=== PATIENT | female | born 1995 | race Caucasian/White ===

== ENCOUNTER 2016-12-26 10:48 | Emergency (ER) | payer BC ==
[2016-12-26 11:05] VITALS: BP 119/81
--- NOTE | 2016-12-26 11:25 | UC ---
Knee Pain HPI - HPI Summary HPI Summary: 21 y/o female presents to the urgent care c/o B/L knee pain. RT Knee pain started 2 weeks after she was running. Pain 5/10 constant w/o any radiation and mild swelling. She is able to ambulate, but sometimes it hurts more w/ flexion or going up the stairs. She has been taking Aleve to alleviate symptoms. Now LF knee started 5 days ago. Pt LMP: 11/30/2016 and she states she is not and declines test. Pt denies numbness or tingling, fever, SOB, chest pain, N/V/D, abdominal pain, - History of Current Complaint Chief Complaint: UCLowerExtremity Stated Complaint: BILATERAL KNEE COMPLAINT Time Seen by Provider: 12/26/16 11:15 Hx Obtained From: Patient Hx Last Menstrual Period: 11/30/16 ?: No Onset/Duration: Gradual Onset, Lasting Days, Still Present Severity Initially: Moderate Severity Currently: Moderate Pain Intensity: 5 Pain Scale Used: 0-10 Numeric Character: Sharp Aggravating Factor(s): Movement, Stairs Alleviating Factor(s): Rest Associated Signs And Symptoms: Positive: Swelling. Negative: Fever, Numbness, Tingling Able to Bear Weight: Yes - Risk Factors Septic Arthritis Risk Factor: Negative Gout Risk Factor: Negative - Allergies/Home Medications Allergies/Adverse Reactions: Allergies Allergy/AdvReac Type Severity Reaction Status Date / Time sulfa Allergy Unknown Uncoded 12/26/16 11:05 Reaction Details Home Medications: Home Medications Amphetamine MIXED SALTS TAB* [Adderall TAB*] 5 mg PO QPM 12/26/16 [History Confirmed 12/26/16] Norethindrone & Mestranol [Necon 150-28 1-50 mg-Mcg] 1 tab PO QAM 12/26/16 [ History Confirmed 12/26/16] Sertraline* [Zoloft*] 100 mg PO DAILY 12/26/16 [History Confirmed 12/26/16] PMH/Surg Hx/FS Hx/Imm Hx Previously Healthy: Yes - Surgical History Surgical History: None - Family History Known Family History: Positive: None - Social History Occupation: Employed Full-time Lives: With Family Alcohol Use: Rare Substance Use Type: Excessive Caffeine Smoking Status (MU): Never Smoked Tobacco Review of Systems Constitutional: Negative Skin: Negative Eyes: Negative ENT: Negative Respiratory: Negative Cardiovascular: Negative Gastrointestinal: Negative Genitourinary: Negative Motor: Negative Neurovascular: Negative Musculoskeletal: Other: - B/L knee pain w/ swelling Neurological: Negative Psychological: Negative All Other Systems Reviewed And Are Negative: Yes Physical Exam Triage Information Reviewed: Yes Appearance: Well-Appearing, No Pain Distress, Well-Nourished, Obese Vital Signs: Initial Vital Signs Temp 98.4 F 12/26/16 10:56 Pulse 72 12/26/16 10:56 Resp 18 12/26/16 10:56 BP 119/81 12/26/16 10:56 Vital Signs Reviewed: Yes Eye Exam: Normal Eyes: Positive: Conjunctiva Clear - PERRLA, EOMI, fundi grossly normal ENT Exam: Normal ENT: Positive: Normal ENT inspection, Hearing grossly normal, Pharynx normal, TMs normal Dental Exam: Normal Neck exam: Normal Neck: Positive: Supple, Nontender, No Lymphadenopathy Respiratory Exam: Normal Respiratory: Positive: Chest non-tender, Lungs clear, Normal breath sounds Cardiovascular Exam: Normal Cardiovascular: Positive: RRR, No Murmur, Pulses Normal, Brisk Capillary Refill Abdominal Exam: Normal Abdomen Description: Positive: Nontender, No Organomegaly, Soft. Negative: CVA Tenderness (R), CVA Tenderness (L) Bowel Sounds: Positive: Present Musculoskeletal: Positive: Strength Intact, ROM Limited @ - B/L knee ROM limited due to pain. RT>LF. Mild sweeling below the RT patella w/ point tenderness above the RT patella. Drawer test, Varus/valgus, and McMurrays test negative. moderate pain on RT knee flexion. Positive pulses and capillary refill intact over the lower extremities. Positive reflexes and sensation intact., Other: Neurological Exam: Normal Psychological Exam: Normal Skin Exam: Normal Knee Pain Course/Dx - Course Course Of Treatment: 21 y/o female presents to the urgent care c/o B/L knee pain. RT Knee pain started 2 weeks after she was running. Pain 5/10 constant w/ o any radiation and mild swelling. She is able to ambulate, but sometimes it hurts more w/ flexion or going up the stairs. She has been taking Aleve to alleviate symptoms. Now LF knee started 5 days ago. Pt LMP: 11/30/2016 and she states she is not and declines test. Pt denies numbness or tingling, fever, SOB, chest pain, N/V/D, abdominal pain, HX obtained. RT knee X -ray ordered, Impression: negative. Probably a knee sprain. LF knee pain probably is developing since Pt is placing more weight bearing on that side to alleviate RT knee pain. PT RT knee immobilized w/ a knee immobilizer. Rx Naproxen to alleviated symptoms and advised RICE and f/u with her PCP if symptoms persists for further evaluation and treatment. Pt understood and agreed and left the clinic ambulating w/ the help of the knee immobilizer. PT RT knee - Differential Dx/Diagnosis Differential Diagnosis/HQI/PQRI: Contusion, Fracture (Closed), Patellofemoral Syndrome, Sprain, Strain, Tendonitis Provider Diagnoses: 1-Billateral knee pain Discharge - Discharge Plan Condition: Stable Disposition: HOME Prescriptions: Naproxen TAB* [Naprosyn 250 mg TAB*] 500 mg PO Q8H PRN #30 tab PRN Reason: Pain Patient Education Materials: Knee Sprain (ED), Patellofemoral Pain Syndrome (ED ) Referrals: Adelia Stevens MD [Primary Care Provider] - 1 Week Additional Instructions: Take Naproxen as instructed after meals to alleviate pain and swelling. Keep your knee immobilized and apply ice and rest. If symptoms do not improve or worsen please f/u with your PCP in 1 week for further evaluation and treatment
--- NOTE | 2016-12-26 11:59 | RAD ---
INDICATION: Right knee pain after running COMPARISON: None TECHNIQUE: AP, lateral, tunnel, and sunrise views were obtained. FINDINGS: The bony structures, joint spaces, and soft tissues are normal for age. IMPRESSION: NEGATIVE EXAMINATION.
== END 2016-12-26 12:30 | disposition home or self-care (01) ==
LOC: UCCORT 10:48
DX: M25.562 Pain in left knee (principal); M25.561 Pain in right knee; E66.9 Obesity, unspecified
CPT/HCPCS: 99203; G0463

== ENCOUNTER 2017-10-24 09:33 | Emergency (ER) | payer BC ==
[2017-10-24 09:48] VITALS: BP 121/68
--- NOTE | 2017-10-24 09:57 | UC ---
Ear Complaint HPI - HPI Summary HPI Summary: Patient presents with recurrent right ear pain. Patient states approximately 2 weeks ago she was prescribed amoxicillin, twice a day, for 7 days. Patient states this was for an ear infection. Patient states symptoms seemed to improve for approximately 3 days. Patient states over the last 2-3 days pain in her ear is much worse. Patient states it feels full like there is fluid. Patient reports pressure and popping when she chews or opens her mouth. No fevers or chills. Patient reports fatigue. No nausea or vomiting. No rash. Patient without history of similar. She denies throat pain. Swelling couple. Shortness of breath. No cough. No rash. Patient's medications reviewed this visit - History of Current Complaint Chief Complaint: UCEar Stated Complaint: RIGHT EAR PAIN Time Seen by Provider: 10/24/17 09:56 Hx Last Menstrual Period: 10/10/17 ?: No Onset/Duration: Gradual Onset, Lasting Days Severity Initially: Moderate Severity Currently: Moderate Pain Intensity: 3 Pain Scale Used: 0-10 Numeric - Allergies/Home Medications Allergies/Adverse Reactions: Allergies Allergy/AdvReac Type Severity Reaction Status Date / Time sulfa Allergy Unknown Uncoded 10/24/17 09:47 Reaction Details Home Medications: Home Medications Omeprazole CAP* [Prilosec CAP* 20 MG] 20 mg PO DAILY 10/24/17 [History Confirmed 10/24/17] PMH/Surg Hx/FS Hx/Imm Hx Previously Healthy: Yes - Surgical History Surgical History: None - Family History Known Family History: Positive: None - Social History Occupation: Employed Full-time Lives: With Family Alcohol Use: Rare Substance Use Type: Excessive Caffeine Smoking Status (MU): Never Smoked Tobacco Review of Systems Constitutional: Fatigue ENT: Ear Ache, Sinus Congestion Respiratory: Negative All Other Systems Reviewed And Are Negative: Yes Physical Exam - Summary Physical Exam Summary: Vital Signs Reviewed: Yes A+Ox3, no distress Eyes: Conjunctiva Clear ABRIL, EOM intact and full ENT: Hearing grossly normal + purulent fluid, buldging right TM no matoid pain. left TM wnl turbinates mild boggy + PND no erythema, no exudate neck: supple no lymphadenopathy Respiratory: Positive: No respiratory distress, No accessory muscle use CTA throughout no w/r Cardiovascular: skin color reflect adequate perfusion RRR nl s1 s2 CBT < 2sec Musculoskeletal Exam: HA x 4 without difficulty Neurological: Positive: Alert, ambulatory without difficulty Psychological: Positive: Normal Response To Family Skin: Positive: no rash, no ecchymosis Triage Information Reviewed: Yes Vital Signs: Initial Vital Signs Temp 97.8 F 10/24/17 09:44 Pulse 82 10/24/17 09:44 Resp 16 10/24/17 09:44 BP 121/68 10/24/17 09:44 Pulse Ox 100 10/24/17 09:44 Ear Complaint Course/Dx - Course Course Of Treatment: Patient with progressive right ear pain. Patient was recently treated with amoxicillin for otitis media. Patient states symptoms improved for approximately 3 days after antibiotics are completed. Patient states the last to 3 days increasing pain and pressure "worse than before "on exam patient with purulent fluid behind her TM with bulging. Patient nontoxic appearing. Vital signs stable. No mastoid pain. Place patient on moxifloxacin. Discussed with patient concern for tendons. Also discussed with patient and proceeded. Patient recommended probiotics or yogurt. Flonase also prescribed as well as recommended decongestant. Pt comfortable and in agreement with plan - Differential Dx/Diagnosis Provider Diagnoses: right otits media Discharge - Sign-Out/Discharge Documenting (check all that apply): Discharge/Admit/Transfer - Discharge Plan Condition: Stable Disposition: HOME Prescriptions: Fluticasone NASAL SPRAY 50MCG* [Flonase NASAL SPRAY 50MCG*] 2 spray BOTH NARES DAILY #1 btl Moxifloxacin HCl [Avelox] 400 mg PO DAILY #10 tablet Patient Education Materials: Ear Infection (ED) Referrals: No Primary Care Phys,NOPCP [Primary Care Provider] - Additional Instructions: - Stay well hydrated. Drink plenty of non-alcoholic, non-caffinated beverages. - Alternate ibuprofen (Advil, Motrin) 600mg and Tylenol every 3 hours for pain or fever. Take with food. Do NOT take for more than 4-5 days. - These infections are spread by secretions - do NOT share eating or drinking utensils - clean items you share with other people such as cell phones, computer mouse, TV remote, computer tablets,etc. Once you have been antibiotics for 2 days, change your toothbrush and your pillowcase. - take antibiotics as prescribed until gone - use nasal spray daily - it is recommended you use a decongestant and antihistamine medications such as Claritin-D, Narda-D, Zyrtec-D - get plenty of restful sleep - humidify the air in the room where you sleep - boil water, run a hot steam shower, vaporizer, cups of water by heat register - It is recommended you take pro-biotics (found in the vitamin aisle) or eat yogurt daily while on the antibiotic to try to prevent diarrhea due to recent amoxicillin in combination with this antibiotic - contact your doctor or return with questions or concerns - Billing Disposition and Condition Condition: STABLE Disposition: Home
== END 2017-10-24 10:25 | disposition home or self-care (01) ==
LOC: UCCORT 09:33
DX: H66.91 Otitis media, unspecified, right ear (principal); Z88.2 Allergy status to sulfonamides
CPT/HCPCS: 99212; G0463

== ENCOUNTER 2018-02-23 09:18 | Emergency (ER) | payer BC ==
[2018-02-23 09:38] VITALS: BP 127/76
--- NOTE | 2018-02-23 10:25 | UC ---
Throat Pain/Nasal Rashi HPI - HPI Summary HPI Summary: sinus pain and pressure x 2 weeks nasal congestion , cough , pnd, no fever, no chills + rash on her left flank area and left upper thigh , not itchy , not painful - History of Current Complaint Chief Complaint: UCGeneralIllness Stated Complaint: CONGESTION COUGH SKIN COMPLAINT Time Seen by Provider: 02/23/18 10:11 Hx Obtained From: Patient Hx Last Menstrual Period: 10/10/17 ?: No Onset/Duration: Gradual Onset, Lasting Weeks - 2, Still Present Severity: Moderate Pain Intensity: 0 Cough: Nonproductive Associated Signs & Symptoms: Positive: Sinus Discomfort, Nasal Discharge, Rash. Negative: Dysphagia, FB Sensation, Drooling, Wheezing, Hoarseness, Fever, Vomiting - Allergies/Home Medications Allergies/Adverse Reactions: Allergies Allergy/AdvReac Type Severity Reaction Status Date / Time Sulfa (Sulfonamide Allergy Unknown Verified 02/23/18 09:37 Antibiotics) Reaction Details Home Medications: Home Medications Iron 1 each PO DAILY 02/23/18 [History Confirmed 02/23/18] PMH/Surg Hx/FS Hx/Imm Hx - Additional Past Medical History Additional PMH: DEPRESSION, anxiety, irregular menses ANEMIA - Surgical History Surgical History: None - Family History Known Family History: Positive: None Negative: Diabetes - Social History Alcohol Use: Occasionally Substance Use Type: None Smoking Status (MU): Never Smoked Tobacco Review of Systems Constitutional: Negative Skin: Rash Eyes: Negative ENT: Sore Throat, Nasal Discharge, Sinus Congestion, Sinus Pain/Tenderness Respiratory: Cough Cardiovascular: Negative Is Patient Immunocompromised?: No All Other Systems Reviewed And Are Negative: Yes Physical Exam Triage Information Reviewed: Yes Appearance: Well-Appearing, No Pain Distress, Well-Nourished Vital Signs: Initial Vital Signs Temp 97.5 F 02/23/18 09:32 Pulse 90 02/23/18 09:32 Resp 14 02/23/18 09:32 BP 127/76 02/23/18 09:32 Pulse Ox 99 02/23/18 09:32 ENT: Positive: Normal ENT inspection, Hearing grossly normal, Pharyngeal erythema, Nasal drainage, TMs normal, Sinus tenderness Neck exam: Normal Neck: Positive: Supple, Nontender, No Lymphadenopathy Respiratory Exam: Normal Respiratory: Positive: Chest non-tender, Lungs clear, Normal breath sounds Cardiovascular: Positive: RRR, No Murmur, Pulses Normal Skin: Positive: rashes - papulary rash left flank / left upper thigh Throat Pain/Nasal Course/Dx - Differential Dx/Diagnosis Provider Diagnoses: sinusitis. folliculis Discharge - Sign-Out/Discharge Documenting (check all that apply): Patient Departure All imaging exams completed and their final reports reviewed: No Studies - Discharge Plan Condition: Stable Disposition: HOME Prescriptions: Amoxicillin/Clavulanate TAB* [Augmentin TAB 875*] 875 mg PO BID #20 tab Mupirocin 2% CREAM* [Bactroban 2% CREAM*] 1 applic TOPICAL TID #1 tube Patient Education Materials: Sinusitis (ED), Folliculitis (ED) Referrals: No Primary Care Phys,NOPCP [Primary Care Provider] - 7 Days - Billing Disposition and Condition Condition: STABLE Disposition: Home
== END 2018-02-23 10:27 | disposition home or self-care (01) ==
LOC: UCCORT 09:18
DX: J32.9 Chronic sinusitis, unspecified (principal); L73.9 Follicular disorder, unspecified; Z88.1 Allergy status to other antibiotic agents
CPT/HCPCS: 99212; G0463

== ENCOUNTER 2018-09-10 09:35 | Emergency (ER) | payer BC ==
[2018-09-10 10:17] VITALS: BP 114/76
--- NOTE | 2018-09-10 10:34 | UC ---
Abdominal Pain Female HPI - HPI Summary HPI Summary: abdominal pain x 1 day sudden onset of sharp mid abdominal pain lasted for 30 min. improved with BM + diarrhea x 3 , noted some blood in her stool no fever, no chills, + nausea, no vomiting - History of Current Complaint Chief Complaint: UCAbdominalPain Stated Complaint: ABDOMINAL PAIN,DIARRHEA Time Seen by Provider: 09/10/18 10:22 Hx Obtained From: Patient Hx Last Menstrual Period: "2 WEEKS AGO MAYBE" ?: No Onset/Duration: Sudden Onset, Lasting Days - 1, Still Present Timing: Constant Severity Initially: Moderate Severity Currently: Moderate Pain Intensity: 5 Location: Diffuse Radiates: No Character: Cramping Aggravating Factor(s): Food Alleviating Factor(s): Nothing Associated Signs and Symptoms: Positive: Nausea, Diarrhea. Negative: Diaphoresis, Fever, Cough, Chest Pain, Dizzy, Back Pain, Constipation, Blood in Stool, Urinary Symptoms, Decreased Appetite, Vaginal Bleeding, Vaginal Discharge , Vomiting Allergies/Adverse Reactions: Allergies Allergy/AdvReac Type Severity Reaction Status Date / Time Sulfa (Sulfonamide Allergy Unknown Verified 09/10/18 10:12 Antibiotics) Reaction Details Home Medications: Home Medications Citalopram TAB* [Celexa TAB*] 1 tab QPM 09/10/18 [History Confirmed 09/10/18] Norethindrone-Ethinyl Estrad [Necon 0.5-35-28 Tablet] 1 tab QPM 09/10/18 [ History Confirmed 09/10/18] PMH/Surg Hx/FS Hx/Imm Hx - Additional Past Medical History Additional PMH: DEPRESSION, anxiety, irregular menses ANEMIA Psychological History: Anxiety, Depression - Surgical History Surgical History: None - Family History Known Family History: Positive: None Negative: Diabetes - Social History Alcohol Use: Occasionally Substance Use Type: None Smoking Status (MU): Never Smoked Tobacco Review of Systems All Other Systems Reviewed And Are Negative: Yes Constitutional: Positive: Negative Skin: Positive: Negative Eyes: Positive: Negative ENT: Positive: Negative Respiratory: Positive: Negative Cardiovascular: Positive: Negative Gastrointestinal: Positive: Abdominal Pain, Diarrhea, Nausea Genitourinary: Positive: Negative Is Patient Immunocompromised?: No Physical Exam Triage Information Reviewed: Yes Appearance: Well-Appearing, No Pain Distress, Well-Nourished Vital Signs: Initial Vital Signs Temp 98.2 F 09/10/18 10:13 Pulse 85 09/10/18 10:13 Resp 16 09/10/18 10:13 BP 114/76 09/10/18 10:13 Pulse Ox 99 09/10/18 10:13 Vital Signs Reviewed: Yes Eye Exam: Normal Eyes: Positive: Conjunctiva Clear ENT: Positive: Normal ENT inspection, Hearing grossly normal, Pharynx normal, Pharyngeal erythema Neck: Positive: Supple, Nontender, No Lymphadenopathy Respiratory: Positive: Chest non-tender, Lungs clear, Normal breath sounds, No respiratory distress Cardiovascular: Positive: RRR, No Murmur, Pulses Normal Abdomen Description: Positive: Nontender, Soft. Negative: CVA Tenderness (R), CVA Tenderness (L), Distended, Guarding Bowel Sounds: Positive: Hypoactive Skin Exam: Normal Abd Pain Female Course/Dx - Differential Dx/Diagnosis Provider Diagnosis: Gastroenteritis Discharge - Sign-Out/Discharge Documenting (check all that apply): Patient Departure All imaging exams completed and their final reports reviewed: No Studies - Discharge Plan Condition: Stable Disposition: HOME Patient Education Materials: Gastroenteritis (ED) Forms: *Work Release Referrals: Bernadine Riley PA [Primary Care Provider] - If Needed - Billing Disposition and Condition Condition: STABLE Disposition: Home
== END 2018-09-10 10:35 | disposition home or self-care (01) ==
LOC: UCCORT 09:35
DX: K52.9 Noninfective gastroenteritis and colitis, unspecified (principal); F41.9 Anxiety disorder, unspecified; F32.9 Major depressive disorder, single episode, unspecified; Z88.2 Allergy status to sulfonamides; Z79.899 Other long term (current) drug therapy
CPT/HCPCS: 99211; G0463

== ENCOUNTER 2019-02-25 09:43 | Emergency (ER) | payer BC ==
[2019-02-25 10:16] VITALS: BP 125/72
--- NOTE | 2019-02-25 10:36 | UC ---
Ear Complaint HPI - HPI Summary HPI Summary: 3 week hx of progressive fatigue and sinus discomfort, did not respond to amoxicillin followed by augmentin. Occasional headaches, sense of ear pressure off and on without hearing loss. Had thyroid check about 10 months ago; clinically has diffusely enlarged gland, some change in bowel with irregular habit, but no weight change. Sleeping excessively. - History of Current Complaint Chief Complaint: UCRespiratory Stated Complaint: SINUS COMPLAINT Time Seen by Provider: 02/25/19 10:24 Hx Obtained From: Patient Hx Last Menstrual Period: 02/11/19 Onset/Duration: Gradual Onset, Lasting Weeks - 3 Severity Initially: Moderate Severity Currently: Moderate Pain Intensity: 0 - Allergies/Home Medications Allergies/Adverse Reactions: Allergies Allergy/AdvReac Type Severity Reaction Status Date / Time Sulfa (Sulfonamide Allergy Unknown Verified 02/25/19 10:03 Antibiotics) Reaction Details Home Medications: Home Medications Fluticasone NASAL SPRAY 50MCG* [Flonase NASAL SPRAY 50MCG*] 2 spray BOTH NARES DAILY 02/25/19 [History Confirmed 02/25/19] Oral Contraceptive 1 tab PO DAILY 02/25/19 [History] PMH/Surg Hx/FS Hx/Imm Hx Previously Healthy: Yes GI/ History: Gastroesophageal Reflux Psychological History: Depression - Surgical History Surgical History: None - Family History Known Family History: Positive: Hypertension, Other - allergies and asthma. Negative: Diabetes - Social History Occupation: Employed Full-time Lives: With Family Alcohol Use: Occasionally Substance Use Type: None Smoking Status (MU): Never Smoked Tobacco Review of Systems All Other Systems Reviewed And Are Negative: Yes Constitutional: Positive: Fatigue Skin: Positive: Negative Eyes: Positive: Negative ENT: Positive: Sore Throat, Ear Ache, Nasal Discharge, Sinus Congestion Respiratory: Positive: Cough - occasional morning cough. Cardiovascular: Positive: Negative Gastrointestinal: Positive: Other - hx of relfux, stools are sluggish and irregular Genitourinary: Positive: Negative Motor: Positive: Negative Neurovascular: Positive: Negative Musculoskeletal: Positive: Negative Neurological: Positive: Headache - not daily, mostly frontal Psychological: Positive: Depressed Is Patient Immunocompromised?: No Physical Exam Triage Information Reviewed: Yes Appearance: No Pain Distress, Ill-Appearing - looks fatigued and mildly unwell Vital Signs: Initial Vital Signs Temp 98 F 02/25/19 10:07 Pulse 76 02/25/19 10:07 Resp 18 02/25/19 10:07 BP 125/72 02/25/19 10:07 Pulse Ox 99 02/25/19 10:07 Eyes: Positive: Conjunctiva Clear ENT: Positive: Pharynx normal, TM dull - bilateral serous fluid., Sinus tenderness - frontal. Negative: Nasal congestion Neck: Positive: Supple, Nontender, No Lymphadenopathy, Other: - thryoid diffusely enlarged, non-tender Respiratory: Positive: Lungs clear, Normal breath sounds Cardiovascular Exam: Normal Musculoskeletal Exam: Normal Neurological: Positive: Alert, Muscle Tone Normal Psychological Exam: Normal Skin Exam: Normal Ear Complaint Course/Dx - Course Course Of Treatment: No evidence of active infection; suggested increase antihistamines and refer to ENT for evaluation. Dr. Torres requested by Prasadhieu as he sees her mother for management. - Differential Dx/Diagnosis Differential Diagnosis/HQI/PQRI: Otitis Externa, Otitis Media, Pharyngitis, URI Provider Diagnosis: Environmental allergies, Fatigue Discharge ED - Sign-Out/Discharge Documenting (check all that apply): Patient Departure All imaging exams completed and their final reports reviewed: No Studies - Discharge Plan Condition: Stable Disposition: HOME Prescriptions: Azelastine 0.15% NASAL(NF) [Astepro 0.15% NASAL (NF)] 2 spray NASAL BID #1 spray LevoCETirizine TAB (NF) [Xyzal TAB (NF)] 5 mg PO DAILY #30 tab Patient Education Materials: Allergies (ED), Fatigue (ED) Forms: *Work Release Referrals: Bernadine Riley PA [Primary Care Provider] - Pa Torres MD [Medical Doctor] - Additional Instructions: Your fatigue could be related to allergies, but a thyroid check and blood count have been ordered to check your thyroid (which is a little enlarged). STOP loratidine and use Xyzal one daily 5mg. This is a more potent antihistamine. If it is not covered by your insurance, try a change to fexofenadine 180mg daily. Use nasal spray azelastine one spray to both nostrils twice daily to improve sinus drainage. CONTINUE use of flonase spray. labs will be available tomorrow and you will be called if they are abnormal. You can call for reports. You have requested a referral to Dr. Torres in [place]. Please call his office to arrange a visit. - Billing Disposition and Condition Condition: STABLE Disposition: Home
[2019-02-25 15:58] LABS: ABS Eosinophils 0.1 10^3/ul (0-0.6); ABS Lymphocytes 2.4 10^3/ul (1.0-4.8); ABS Monocytes 0.4 10^3/ul (0-0.8); ABS Neutrophils 4.8 10^3/ul (1.5-7.7); Eosinophil % 0.9 %; Hematocrit 38 % (35-47); Mean Corpuscular HGB Conc 34 g/dL (31-36); Mean Corpuscular Hemoglobin 29 pg (27-31); Mean Corpuscular Volume 86 fL (80-97); Mean Platelet Volume 9.8 fL (7.4-10.4); Platelet Count 201 10^3/uL (150-450); Red Blood Count 4.46 10^6 /uL (3.70-4.87); Red Cell Distribution Width 13 % (10-15); White Blood Count 7.6 10^3/uL (3.5-10.8)
--- NOTE | 2019-02-26 07:17 | UC ---
- Progress Note Progress Note: cbc with diff reviewed tsh wnl no change Ljj Course/Dx - Diagnoses Provider Diagnoses: Environmental allergies, Fatigue Discharge ED - Sign-Out/Discharge Documenting (check all that apply): Post-Discharge Follow Up All imaging exams completed and their final reports reviewed: No Studies - Discharge Plan Condition: Stable Disposition: HOME Prescriptions: Azelastine 0.15% NASAL(NF) [Astepro 0.15% NASAL (NF)] 2 spray NASAL BID #1 spray LevoCETirizine TAB (NF) [Xyzal TAB (NF)] 5 mg PO DAILY #30 tab Patient Education Materials: Allergies (ED), Fatigue (ED) Forms: *Work Release Referrals: Pa Torres MD [Medical Doctor] - Bernadine Riley PA [Primary Care Provider] - Additional Instructions: Your fatigue could be related to allergies, but a thyroid check and blood count have been ordered to check your thyroid (which is a little enlarged). STOP loratidine and use Xyzal one daily 5mg. This is a more potent antihistamine. If it is not covered by your insurance, try a change to fexofenadine 180mg daily. Use nasal spray azelastine one spray to both nostrils twice daily to improve sinus drainage. CONTINUE use of flonase spray. labs will be available tomorrow and you will be called if they are abnormal. You can call for reports. You have requested a referral to Dr. Torres in [place]. Please call his office to arrange a visit. - Billing Disposition and Condition Condition: STABLE Disposition: Home
== END 2019-02-25 11:04 | disposition home or self-care (01) ==
LOC: UCCORT 09:43
DX: J30.2 Other seasonal allergic rhinitis (principal); R53.83 Other fatigue; R59.0 Localized enlarged lymph nodes; R19.4 Change in bowel habit; Z88.2 Allergy status to sulfonamides
CPT/HCPCS: 36415; 84443; 85025; 99212; G0463